=== PATIENT | male | born 1940 | race Caucasian/White ===

== ENCOUNTER 2016-11-18 11:17 | Emergency (ER) | payer MEDICARE, BC ==
[~2016-11-18] VITALS: Ht 177.8 cm; Wt 80.0 kg
[~2016-11-18 11:17] MED LIST: CARV25TA PO; FINA5TAB2 PO; GEMF600T PO; GLIP5TAB8 PO; LISI10TA3 PO; SIMV10TA PO; TAMS0.4C4 PO
[2016-11-18 11:21] VITALS: BP 186/88; PULSE 87; RESP 16; TEMP 97.9; O2SAT 97
[2016-11-18 11:34] VITALS: BP 182/86
[2016-11-18] MEDS ORDERED: ASPI81CH37 CHEW (11:35)
--- NOTE | 2016-11-18 11:39 | PD ---
HPI Chief Complaint: Eye Problems/Injury Time Seen by Provider: 11:32 Travel History International Travel<30 days: No Contact w/Intl Traveler<30days: No Traveled to known affect area: No History of Present Illness HPI 76-year-old male with a history of hypertension, hyperlipidemia and diabetes presents to the emergency department for evaluation of red right eye that began this morning. Patient states that he woke up this morning and felt the mild foreign body sensation in his eye so he looked in the mirror and noted that he had a large amount of redness in his eye and looked "as though something had burst." Denies any injury or trauma to the eye. States because he is a diabetic he wanted to come in and make sure that everything was okay. He states that he has no pain, vision loss, photophobia, headache, lightheadedness , dizziness, nausea, vomiting, increased tearing, discharge or drainage. He takes 81 mg aspirin daily but denies any other anticoagulation. No other complaints. PFSH Past Medical History Hx Anticoagulant Therapy: Yes (asa) Cardiovascular Problems: Yes High Cholesterol: Yes Cerebrovascular Accident: Yes Diabetes: Yes Patient Takes Glucophage: No Hypertension: Yes Immunizations Current: Yes (shingles) Social History Alcohol Use: No Tobacco Use: No Substance Use: No Allergies-Medications (Allergen,Severity, Reaction): Coded Allergies: Penicillin (Verified Allergy, Mild, "does not work", 11/18/16) Reported Meds & Prescriptions Reported Meds & Active Scripts Active Glipizide 5 Mg Tab 5 Mg PO DAILY Take 30 minutes before a meal Reported Aspirin Low Dose (Aspirin) 81 Mg Chew 81 Mg CHEW DAILY Finasteride 5 Mg Tab 5 Mg PO DAILY Do not crush. Lisinopril 10 Mg Tab 10 Mg PO ONE OR TWO Tamsulosin (Tamsulosin HCl) 0.4 Mg Cap 0.4 Mg PO HS Carvedilol 25 Mg Tab 25 Mg PO DAILY Simvastatin 10 Mg Tab 10 Mg PO DAILY Gemfibrozil 600 Mg Tab 600 Mg PO BIDAC Take 30 minutes prior to breakfast and dinner. Review of Systems Except as stated in HPI: all other systems reviewed are Neg Physical Exam Narrative GENERAL: Well-nourished and well-developed pleasant patient in no acute distress who is nontoxic appearing. SKIN: Warm and dry. HEAD: Normocephalic and atraumatic. EYES: Subconjunctival hemorrhage to right eye noted to inferior, lateral and superior aspect, affecting only the sclera. Does not cross the iris. No drainage or hyphema noted. Left eye is within normal limits. PERRLA. EOMI. funduscopic exam is limited but not not reveal any acute abnormalities. ENT: No nasal drainage noted. Oropharynx is clear/ NECK: Supple and the trachea is midline. CARDIOVASCULAR: Regular rate and rhythm. RESPIRATORY: Breath sounds are equal bilaterally with no accessory muscle use, wheezing, rhonchi, or crackles. NEUROLOGICAL: Awake, alert, and oriented. Normal speech and gait. Cranial nerves are grossly intact. Data Data Last Documented VS Vital Signs Date Time Temp Pulse Resp B/P Pulse Ox O2 Delivery O2 Flow Rate FiO2 11/18/16 11:34 182/86 11/18/16 11:21 97.9 87 16 97 MDM Medical Decision Making Medical Screen Exam Complete: Yes Emergency Medical Condition: Yes Differential Diagnosis Subconjunctival hemorrhage versus conjunctival abrasion versus episcleritis Narrative Course 76-year-old male presents to the emergency department for evaluation of right red eye that began this morning when he woke up. Patient is afebrile, vital signs are stable. He has a subconjunctival or drainage to the right eye. Otherwise examination is unremarkable. Visual acuity shows 20/30 and right eye in 2012 and left eye, patient reports this is chronic. Discussed supportive care with the patient. Advised follow-up with his PCP. Patient verbalizes understanding and agreement with treatment plan. Diagnosis Primary Impression: Subconjunctival hemorrhage of right eye Referrals: Primary Care Physician Patient Instructions: General Instructions, Subconjunctival Hemorrhage (ED) Additional Instructions: Applying warm or cool compresses may help alleviate symptoms of discomfort. Follow-up with your Primary Care Physician. Return to the ED for any acute worsening of symptoms. Med/Other Pt SpecificInfo: No Change to Meds Disposition: 01 DISCHARGE HOME Condition: Stable Neela Florentino Nov 18, 2016 11:39
--- NOTE | 2016-11-18 11:43 | PD ---
Data Data Last Documented VS Vital Signs Date Time Temp Pulse Resp B/P Pulse Ox O2 Delivery O2 Flow Rate FiO2 11/18/16 11:34 182/86 11/18/16 11:21 97.9 87 16 97 MDM Supervised Visit with CARMELA: Yes Narrative Course The history, exam, and medical decision-making in the associated mid-level provider note were completed with my assistance. I reviewed and agree with the findings presented. I attest that I had a [id number] encounter with the patient on the same day, and personally performed and documented my assessment and findings in the medical record. *My assessment and Findings: 76-year-old male with some conjunctival hemorrhage of the right eye. Started today. A little bit of foreign body sensation. No pain. No visual changes. Recommend supportive treatment. Diagnosis Primary Impression: Subconjunctival hemorrhage of right eye Referrals: Primary Care Physician Patient Instructions: General Instructions, Subconjunctival Hemorrhage (ED) Additional Instruction: Applying warm or cool compresses may help alleviate symptoms of discomfort. Follow-up with your Primary Care Physician. Return to the ED for any acute worsening of symptoms. Disposition: 01 DISCHARGE HOME Condition: Stable Tyrone Marmolejo MD Nov 18, 2016 11:43
[2016-12-10] MEDS ORDERED: GEMF600T PO (12:16)
[2016-12-25] MEDS ORDERED: PRAV20TA2 PO (14:02)
[2016-12-25] MEDS ORDERED: CARV12.52 PO (14:12)
== END 2016-11-18 12:32 | disposition home or self-care (01) ==
LOC: NEPC 11:17
DX: H11.31 Conjunctival hemorrhage, right eye (principal)
CPT/HCPCS: 99283